=== PATIENT | male | born 1930 | race Caucasian/White ===

== ENCOUNTER 2020-06-13 15:21 | Inpatient (IN) | payer MEDICARE, BC ==
[~2020-06-13] VITALS: Ht 180.3 cm; Wt 91.0 kg
--- NOTE | 2020-06-13 15:37 | NUR ---
[facility], FROM [facility]. SENT HERE FOR NEURO WORK UP. PT AWOKE THIS AM WITH INCREASED WEAKNESS IN BLE AND GEN WEAKNESS. PT STATES HIS LEGS WERE SHAKING AND WAS UNABLE TO WALK. PT DENIES UNILATERAL WEAKNESS. AT TIME OF ARRIVAL PT STATES HE "FEELS FINE" NO NEURO DEFICITS NOTED AT THIS TIME. PT HAS NOT ATTEMPTED TO WALK, BUT OTHERWISE FEELS NORMAL. PT TO BP, CONT PULSE OX, CARD MONITOR.
[2020-06-13 16:24] LABS: BASOPHILS # (AUTO) 0.05 x10^3/uL (0-0.1); BASOPHILS % (AUTO) 1 % (0-1); EOSINOPHILS # (AUTO) 0.05 x10^3/uL (0-0.4); EOSINOPHILS % (AUTO) 1 % (1-7); LYMPHOCYTES # (AUTO) 1.09 x10^3/uL (1-3.4); LYMPHOCYTES % (AUTO) 15 % (22-44); MD NO; MEAN CORPUSCULAR HEMOGLOBIN 30.1 pg (27.5-34.5); MEAN CORPUSCULAR HGB CONC 33.3 g/dL (33.2-36.2); MEAN PLATELET VOLUME 7.4 fL (7.4-10.4); MONOCYTES # (AUTO) 0.52 x10^3/uL (0.2-0.8); MONOCYTES % (AUTO) 7 % (2-9); NEUTROPHILS # (AUTO) 5.41 x10^3/uL (1.8-6.8); NEUTROPHILS % (AUTO) 76 % (42-75); PLATELET COUNT 293 x10^3/uL (130-400); RED BLOOD COUNT 5.11 x10^6/uL (4.38-5.82); RED CELL DISTRIBUTION WIDTH 14.1 % (9.4-14.8)
[2020-06-13 16:27] LABS: ALANINE AMINOTRANSFERASE 17 U/L (12-78); ALBUMIN 4.1 g/dL (3.4-5.0); ANION GAP 8 mmol/L (5-15); CALCIUM 9.6 mg/dL (8.5-10.1); CHLORIDE 109 mmol/L (98-107); CREATININE 1.11 mg/dL (0.7-1.3)
[2020-06-13 16:29] LABS: ALKALINE PHOSPHATASE 99 U/L (45-117); BILIRUBIN,TOTAL 0.7 mg/dL (0.2-1.0); TOTAL PROTEIN 7.7 g/dL (6.4-8.2)
[2020-06-13] MEDS ORDERED: LORazepam 2 MG/ML, 1ML IVPush ONE (16:30)
[2020-06-13] MEDS ORDERED: LORazepam 2 MG/ML, 1ML ONE (16:32)
[2020-06-13 16:43] LABS: MICROSCOPIC INDICATED
[2020-06-13 16:48] LABS: INTERNATIONAL NORMALIZED RATIO 0.96 (0.93-1.1); PROTHROMBIN TIME 10.2 Seconds (9.6-11.5)
[2020-06-13] MEDS ORDERED: hydrALAzine 20 MG/ML, 1ML IVPush PRN (17:00)
[2020-06-13] MEDS ORDERED: LABETALOL 5MG/ML, 20ML IVPush PRN (17:00)
[2020-06-13] MEDS ORDERED: FURO40TA6 PO (17:00)
[2020-06-13] MEDS ORDERED: APIX5TAB PO (17:00)
[2020-06-13] MEDS ORDERED: ACETAMINOPHEN 325 MG TABLET PO PRN (17:00)
[2020-06-13] MEDS ORDERED: LOSA50TA14 PO (17:00)
[2020-06-13] MEDS ORDERED: METO25TA91 PO (17:00)
[2020-06-13] MEDS ORDERED: AMLO10TA8 PO (17:00)
[2020-06-13] MEDS ORDERED: ONDANSETRON 2MG/ML, 2ML IVPush PRN (17:00)
[2020-06-13] MEDS ORDERED: CLON0.2T PO (17:00)
[2020-06-13] MEDS ORDERED: ESOM40CA PO (17:01)
[2020-06-13] MEDS ORDERED: SILD100T PO (17:01)
[2020-06-13] MEDS ORDERED: PLEASE ENTER ALLERGIES MC SCH (17:30)
--- NOTE | 2020-06-13 17:32 | NUR ---
PT BACK FROM MRI, TO BE ADMIT
--- NOTE | 2020-06-13 18:11 | NUR ---
REPORT TO RECIEVING RN, AWAITING TRANSPORT
[2020-06-13 18:36] VITALS: BP 172/80
[2020-06-13] MEDS: METOPROLOL TARTRATE 25 MG TAB PO SCH (20:42)
[2020-06-13] MEDS: APIXABAN 2.5 MG TABLET PO SCH (20:42)
[2020-06-14 01:00] VITALS: BP 136/72
[2020-06-14 04:03] LABS: BASOPHILS # (AUTO) 0.05 x10^3/uL (0-0.1); BASOPHILS % (AUTO) 1 % (0-1); EOSINOPHILS # (AUTO) 0.18 x10^3/uL (0-0.4); EOSINOPHILS % (AUTO) 3 % (1-7); LYMPHOCYTES # (AUTO) 1.43 x10^3/uL (1-3.4); LYMPHOCYTES % (AUTO) 20 % (22-44); MD NO; MEAN CORPUSCULAR HEMOGLOBIN 29.8 pg (27.5-34.5); MEAN CORPUSCULAR HGB CONC 32.8 g/dL (33.2-36.2); MEAN PLATELET VOLUME 7.1 fL (7.4-10.4); MONOCYTES # (AUTO) 0.66 x10^3/uL (0.2-0.8); MONOCYTES % (AUTO) 9 % (2-9); NEUTROPHILS # (AUTO) 4.81 x10^3/uL (1.8-6.8); NEUTROPHILS % (AUTO) 67 % (42-75); PLATELET COUNT 264 x10^3/uL (130-400); RED BLOOD COUNT 4.69 x10^6/uL (4.38-5.82)
[2020-06-14 04:12] LABS: ALANINE AMINOTRANSFERASE 17 U/L (12-78); ALBUMIN 3.5 g/dL (3.4-5.0); ANION GAP 6 mmol/L (5-15); CALCIUM 9.3 mg/dL (8.5-10.1); CHLORIDE 113 mmol/L (98-107)
[2020-06-14 04:14] LABS: ALKALINE PHOSPHATASE 84 U/L (45-117); BILIRUBIN,TOTAL 0.4 mg/dL (0.2-1.0); CREATININE 1.05 mg/dL (0.7-1.3); TOTAL PROTEIN 6.7 g/dL (6.4-8.2)
[2020-06-14] MEDS: METOPROLOL TARTRATE 25 MG TAB PO SCH (06:30)
[2020-06-14 07:19] VITALS: BP 177/66
[2020-06-14] MEDS: APIXABAN 2.5 MG TABLET PO SCH (08:09)
[2020-06-14] MEDS ORDERED: AMLODIPINE 5 MG TABLET PO SCH (09:00)
[2020-06-14] MEDS ORDERED: AMLODIPINE 5 MG TABLET PO ONE (09:30)
[2020-06-14 13:23] VITALS: BP 164/72
[2020-06-14 13:25] LABS: LDL/HDL RATIO 2.8 (0.5-3.0)
[2020-06-14 20:11] VITALS: BP 165/91
[2020-06-14] MEDS ORDERED: LOSARTAN 50MG TABLET PO SCH (21:00)
[2020-06-14] MEDS: APIXABAN 5 MG TABLET PO SCH (21:30)
[2020-06-14] MEDS: ATORVASTATIN 80 MG TABLET PO SCH (21:30)
[2020-06-14 21:33] VITALS: BP 157/87
[2020-06-15 00:49] VITALS: BP 142/82
[2020-06-15] MEDS: OMEPRAZOLE 20 MG CAPSULE.DR PO SCH (05:14)
[2020-06-15 08:45] VITALS: BP 174/80
[2020-06-15] MEDS: APIXABAN 5 MG TABLET PO SCH ×2 (08:46→21:44)
[2020-06-15] MEDS: AMLODIPINE 10 MG TAB PO SCH (08:46)
[2020-06-15] MEDS: LOSARTAN 100 MG TAB PO SCH (09:41)
[2020-06-15 12:58] VITALS: BP 159/98
[2020-06-15 18:46] VITALS: BP_SYST 116; BP_SYST 146; BP_DIAS 74; BP_DIAS 88
[2020-06-15] MEDS: ATORVASTATIN 80 MG TABLET PO SCH (21:44)
[2020-06-16 01:56] VITALS: BP 139/82
[2020-06-16] MEDS: OMEPRAZOLE 20 MG CAPSULE.DR PO SCH (06:18)
[2020-06-16 07:15] VITALS: BP 162/88
[2020-06-16] MEDS: APIXABAN 5 MG TABLET PO SCH (08:25)
[2020-06-16] MEDS: LOSARTAN 100 MG TAB PO SCH (08:25)
[2020-06-16] MEDS: AMLODIPINE 10 MG TAB PO SCH (08:25)
[2020-06-16] MEDS ORDERED: CHLORTHALIDONE 25 MG TABLET PO SCH (09:00)
[2020-06-16] MEDS ORDERED: APIX5TAB PO (11:51)
[2020-06-16] MEDS ORDERED: LOSA100T2 PO (11:51)
[2020-06-16] MEDS ORDERED: CHLO25TA PO ×2 (11:51)
[2020-06-16] MEDS ORDERED: ATOR-2 PO (11:51)
[2020-06-16 13:33] VITALS: BP 142/78
[2020-06-25] MEDS ORDERED: SILD100T PO (16:15)
[2020-06-25] MEDS ORDERED: ASPI-496 PO (17:38)
[2020-06-26] MEDS ORDERED: ASPI81TA45 PO (12:08)
== END 2020-06-16 15:48 | disposition home or self-care (01) | DRG 65 ==
LOC: ED 17:01 → EDIP 17:19 → 4WST 18:29
PROVIDERS: ADMIT Internal Medicine; ATTEND Internal Medicine
DX: I63.81 Other cerebral infarction due to occlusion or stenosis of small artery (principal); D68.69 Other thrombophilia; I48.20 Chronic atrial fibrillation, unspecified; I10 Essential (primary) hypertension; K21.9 Gastro-esophageal reflux disease without esophagitis; H91.90 Unspecified hearing loss, unspecified ear; I34.0 Nonrheumatic mitral (valve) insufficiency; I77.819 Aortic ectasia, unspecified site; Z79.01 Long term (current) use of anticoagulants; Z87.891 Personal history of nicotine dependence; Z96.653 Presence of artificial knee joint, bilateral
CPT/HCPCS: 36415; 70551; 80053; 80061; 81001; 83735; 84443; 85025; 85610; 93005; 93306; 93880; G0378; J2060